=== PATIENT | male | born 1975 | race African-American/Black ===

== ENCOUNTER 2020-03-14 17:24 | Emergency (ER) | payer OTHER ==
[~2020-03-14] VITALS: Ht 198.1 cm; Wt 163.3 kg
[~2020-03-14 17:24] MED LIST: ALDACTONE25 MG PO; AZITHROMYCIN 2250 MG PO; CARDURA4 MG PO; HYDROCHLOROTHIA25 M2 PO; LISINOPRIL40 MG PO; METFORMIN PO; NOHOMEMEDICATIONS; NORVASC10 MG; TOPROL XL25 MG PO; TOPROL XL50 MG PO
[2020-03-14 18:11] LABS: ICTOTEST (BILI CONFIRMATORY) Negative (Negative); URINE BILIRUBIN 1+ (Negative); URINE BLOOD 3+ (Negative); URINE CLARITY SL CLOUDY; URINE COLOR ORANGE; URINE GLUCOSE-RANDOM* 3+ (Negative); URINE KETONES TRACE (Negative); URINE LEUKOCYTES-REFLEX TRACE (Negative); URINE NITRITE-REFLEX POSITIVE (Negative); URINE PROTEIN (DIPSTICK) 2+ (Negative); URINE SPECIFIC GRAVITY 1.015 (1.005-1.035)
[2020-03-14 18:23] LABS: CASTS None Seen /LPF (None Seen); CRYSTALS None Seen /LPF (None Seen); SQUAMOUS 0-3 Few /LPF (0-3)
[2020-03-14 18:24] LABS: BACTERIA-REFLEX 1-9 Few /HPF (None Seen); URINE RBC >20 Many /HPF (0-2); URINE WBC-REFLEX 0-5 Rare /HPF (0-5)
[2020-03-14] MEDS ORDERED: KEFLEX500 M1 PO (19:39)
[2020-03-14] MEDS ORDERED: GLUMETZA500 PO (19:42)
[2020-03-14] MEDS ORDERED: LISINOPRIL10 MG PO (19:42)
[2020-03-14] MEDS ORDERED: SPIRONOLACTONE100 M1 PO (19:42)
[2020-03-14 20:00] VITALS: BP 211/129
== END 2020-03-14 20:00 | disposition home or self-care (01) ==
LOC: ER 17:24
PROVIDERS: Emergency Medicine
DX: N39.0 Urinary tract infection, site not specified (principal); I10 Essential (primary) hypertension; Z79.899 Other long term (current) drug therapy; Z88.5 Allergy status to narcotic agent; Z91.013 Allergy to seafood

== ENCOUNTER 2021-04-10 16:05 | Emergency (ER) | payer OTHER ==
[~2021-04-10] VITALS: Ht 198.1 cm; Wt 117.9 kg
[~2021-04-10 16:05] MED LIST changes: +GLUMETZA500 PO; +KEFLEX500 M1 PO; +LISINOPRIL10 MG PO; +SPIRONOLACTONE100 M1 PO
[2021-04-10 17:51] LABS: BASOPHILS 0.9 % (0.0-2.0); EOSINOPHILS 0.2 % (0.0-3.0); HEMATOCRIT 39.6 % (42.0-52.0); HEMOGLOBIN 13.2 gm/dL (14.0-18.0); LYMPHOCYTES 22.7 % (24.0-44.0); MCH 30.5 pg (26.0-34.0); MCHC 33.3 g/dL (28.0-37.0); MCV 91.6 fL (80.0-100.0); MONOCYTES 11.9 % (1.0-8.0); PLATELET COUNT 230 thou/uL (150-400); POLYS 64.3 % (36.0-66.0); RBC 4.32 mil/uL (4.50-6.00); RDW 14.3 % (10.5-14.5); WBC 4.7 thou/uL (4.0-11.0)
[2021-04-10 17:59] LABS: CALCIUM 8.4 mg/dL (8.5-10.1); CREATININE 1.1 mg/dL (0.7-1.3); POTASSIUM 3.1 mmol/L (3.5-5.1)
[2021-04-10 18:16] LABS: ALBUMIN 3.4 g/dL (3.4-5.0); DIRECT BILIRUBIN 0.2 mg/dL (<0.1-0.2); TOTAL BILIRUBIN 1.5 mg/dL (0.2-1.0); TOTAL PROTEIN 7.8 g/dL (6.4-8.2)
[2021-04-10 18:58] LABS: URINE BILIRUBIN NEGATIVE (Negative); URINE BLOOD TRACE (Negative); URINE CLARITY CLEAR; URINE COLOR YELLOW; URINE GLUCOSE-RANDOM* 3+ (Negative); URINE KETONES NEGATIVE (Negative); URINE LEUKOCYTES-REFLEX NEGATIVE (Negative); URINE NITRITE-REFLEX NEGATIVE (Negative); URINE PROTEIN (DIPSTICK) TRACE (Negative); URINE SPECIFIC GRAVITY <= 1.005 (1.005-1.035)
[2021-04-10] MEDS ORDERED: METFORMIN HCL500 M3 PO (20:11)
[2021-04-10] MEDS ORDERED: LISINOPRIL10 MG PO (20:11)
[2021-04-10 20:40] VITALS: BP 214/118
--- NOTE | 2021-04-11 08:44 | EKG ---
[address] [address] ELECTROCARDIOGRAM REPORT Name: DIMITRI HDZ Room #: DEP Renae#: [id number] Admission: 04/10/21 Attend Phys: Discharge: 04/10/21 Date of : 75 Report #: [id number] [facility] ED Test Date: 2021-04-10 Test Time: 17:00:27 Pat Name: DIMITRI HDZ Department: Room: Gender: M Credentialing Specialist: SARMAD : 1975 Requested By: Jerson Melo Order Number: [id number] MD: Christopher Moralez Measurements Intervals [place] Rate: 111 P: 53 TX: 100 QRS: -22 QRSD: 118 T: 192 QT: 348 QTc: 473 Interpretive Statements Sinus tachycardia Multiple ventricular premature complexes Probable left atrial enlargement LVH with secondary repolarization abnormality Compared to ECG 06/19/2010 17:38:11 Ventricular premature complex(es) now present Left ventricular hypertrophy now present Early repolarization now present Sinus rhythm no longer present Sinus arrhythmia no longer present Intraventricular conduction delay no longer present T-wave abnormality no longer present Electronically Signed On 04-11-2021 8:43:51 UPHOLSTERER LIMOUSINE AND HEARSE by Christopher Moralez [email or web address] <ELECTRONICALLY SIGNED> By: Christopher Moralez MD, FACC 04/11/21 [id number] Christopher Moralez MD, FAC /EPI
== END 2021-04-10 21:06 | disposition home or self-care (01) ==
LOC: ER 16:05
PROVIDERS: Student in an Organized Health Care Education/Training Program
DX: U07.1 COVID-19 (principal); I10 Essential (primary) hypertension; Z79.84 Long term (current) use of oral hypoglycemic drugs; Z79.899 Other long term (current) drug therapy; Z88.5 Allergy status to narcotic agent; Z91.013 Allergy to seafood